=== PATIENT | male | born 1960 | race Caucasian/White ===

== ENCOUNTER 2017-06-30 06:29 | Emergency (ER) | payer OTHER ==
[2017-06-30 07:17] LABS: #Basophils 0.1 thou/uL (0.0-0.2); #Eosinphils 0.5 thou/uL (0.0-0.7); #Lymphocytes 1.3 thou/uL (1.20-3.40); #Monocytes 0.6 thou/uL (0.11-0.59); #Neutrophils 2.8 thou/uL (1.40-6.50); %Basophils 2.1 % (0.0-1.0); %Eosinophils 9.3 % (0.0-10.0); %Monocytes 11.8 % (0.0-10.0); %Neutrophils 52.9 % (42.0-75.0); Hemoglobin 15.8 g/dL (14.0-18.0); Mean Corpuscular HGB CONC 33.6 g/dL (32.0-36.0); Mean Corpuscular Volume 92.4 fl (80.0-94.0); Mean Platelet Volume 7.7 fL (7.4-10.4); Platelet Count 193 thou/uL (130-400); RBC Distribution Width 11.1 % (11.5-14.5); Red Blood Cell (RBC) Count 5.09 mill/uL (4.70-6.10); White Blood Cell (WBC) Count 5.2 thou/uL (4.8-10.8)
[2017-06-30] MEDS ORDERED: methylPREDNISolone Sod Succ/PF 125 MG/2 ML VIAL ONE (07:23)
[2017-06-30 07:31] LABS: ALT (SGPT) 85 U/L (8-55); AST (SGOT) 41 U/L (5-34); Albumin 4.4 g/dL (3.5-5.0); Alkaline Phosphatase 53 U/L (40-150); Anion Gap 14 mmol/L (10-20); BUN (Urea Nitrogen) 9 mg/dL (8.4-25.7); Bilirubin, Total 0.8 mg/dL (0.2-1.2); CK (CPK) 270 U/L (30-200); Calc. Creatinine Clearance 0 mL/min (70-130); Calcium 9.2 mg/dL (7.8-10.44); Carbon Dioxide 27 mmol/L (22-29); Chloride 102 mmol/L (98-107); Estimated GFR-MDRD 76; Globulin 2.3 g/dL (2.4-3.5); Glucose 166 mg/dL (70-105); Lipase 14 U/L (8-78); Potassium 4.4 mmol/L (3.5-5.1); Protein, Total 6.7 g/dL (6.0-8.3); Sodium 139 mmol/L (136-145)
[2017-06-30 07:32] LABS: CKMB 6.4 ng/mL (0-6.6); Troponin I Less than 0.010 ng/mL (< 0.028)
--- NOTE | 2017-06-30 07:32 | RAD ---
SEMIUPRIGHT PORTABLE CHEST 1 VIEW: Date: 06/30/17 HISTORY: 56-year-old male with dyspnea and wheezing. COMPARISON: 02/08/17. 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 Left hemidiaphragm elevation. No conf luent pneumonia, overt edema, or pleural effusion. IMPRESSION: No acute intrathoracic disease. Left hemidiaphragm elevation. POS: [facility]
[2017-06-30] MEDS ORDERED: Magnesium Sulfate 2 GM/NS 0.9% 50 ML BAG ONE (07:35)
[2017-06-30] MEDS ORDERED: Albuterol Sulfate 2.5 mg/0.5 ml Neb ONE (08:31)
== END 2017-06-30 09:37 | disposition home or self-care (01) ==
LOC: SCSER 06:29
DX: J44.9 Chronic obstructive pulmonary disease, unspecified (principal); R09.02 Hypoxemia; E78.5 Hyperlipidemia, unspecified; F17.220 Nicotine dependence, chewing tobacco, uncomplicated
CPT/HCPCS: 71045; 80053; 82553; 83690; 83880; 84484; 85025; 93005; 96365; 96375; J2930; J3475; J7611; J7620

== ENCOUNTER 2017-07-05 09:42 | Outpatient (CLI) | payer OTHER ==
--- NOTE | 2017-07-05 10:44 | RAD ---
CHEST 2 VIEWS: HISTORY: Dyspnea. COMPARISON: 07/09/14. FINDINGS: Cardiac silhouette and pulmonary vasculature are unremarkable. Mediastinum is midline. Lobulation a nd slight elevation of the left hemidiaphragm is stable. Parenchymal scarring at the lung bases is u nchanged in appearance. IMPRESSION: Stable radiographic appearance of the chest. POS: [facility]
== END 2017-07-05 09:43 | disposition home or self-care (01) ==
LOC: RAD 09:42
PROVIDERS: ATTEND Internal Medicine
DX: R06.00 Dyspnea, unspecified (principal)
CPT/HCPCS: 71046

== ENCOUNTER 2017-07-22 19:00 | Outpatient (CLI) | payer OTHER | END 2017-07-22 19:01 | disposition home or self-care (01) | LOC: SLEEPLAB 19:00 | PROVIDERS: ATTEND Internal Medicine | DX: G47.33 Obstructive sleep apnea (adult) (pediatric) (principal); E66.9 Obesity, unspecified; E11.9 Type 2 diabetes mellitus without complications; R35.1 Nocturia; J44.9 Chronic obstructive pulmonary disease, unspecified; K21.9 Gastro-esophageal reflux disease without esophagitis | CPT/HCPCS: 95806 ==

== ENCOUNTER 2017-10-14 08:09 | Outpatient (CLI) | payer OTHER ==
--- NOTE | 2017-10-14 09:36 | RAD ---
CHEST 2 VIEWS: Date: 10/14/17 HISTORY: Dyspnea. COMPARISON: 07/05/17. FINDINGS: Cardiac silhouette and pulmonary vasculature are unremarkable. Linear atelectasis of the lingula has developed. Lungs are otherwise hyperinflated. No evidence of pneumothorax. IMPRESSION: COPD> Interval development lingular atelectasis. POS: [facility]
== END 2017-10-14 08:10 | disposition home or self-care (01) ==
LOC: RAD 08:09
PROVIDERS: ATTEND Internal Medicine Pulmonary Disease
DX: R06.00 Dyspnea, unspecified (principal); J44.9 Chronic obstructive pulmonary disease, unspecified; J98.11 Atelectasis
CPT/HCPCS: 71046

== ENCOUNTER 2017-11-03 11:31 | Outpatient (CLI) | payer OTHER ==
[2017-11-03] MEDS ORDERED: Iopamidol 370 76% 100 ML VIAL ONE (13:20)
--- NOTE | 2017-11-03 13:57 | CT ---
CONTRAST ENHANCED CT CHEST: HISTORY: Cough. COPD. Chronic cough for several years. History of atelectasis. TECHNIQUE: Contrast enhanced CT images of the chest are performed. The patient received 95 mL of Isovue-370. FINDINGS: Images demonstrate some areas of scarring seen in the left lower lobe. Some areas of atelectasis or scar are also present in the right middle lobe. The mediastinum is unremarkable. No significant evidence of lymphadenopathy is seen. No evidence of coronary artery calcification is seen. No evidence of pulmonary edema or air space opacity is seen. Hypodense areas seen in the left hepatic lobe, compatible with likely cysts. IMPRESSION: Areas of scar in the left lower lobe and right middle lobe. POS: [facility]
[2017-11-03 15:52] LABS: pH, Arterial 7.38 (7.35-7.45)
[2017-11-03 15:53] LABS: Actual Bicarbonate (HCO3a) 22.8 mEq/L (22-26); Base Excess (BEa) 1.9 mEq/L (0 (+/-) 2.5); CO2 Tension 39.1 mmHg (35.0-45.0); Hematocrit-ABG 47.8 % (42.0-52.0); O2 Tension (PaO2) 62.1 mmHg (80.0-100.0)
[2017-11-03 15:55] LABS: ALV-art Gradient 38.755 (0-20); Puncture Site RR
== END 2017-11-03 11:32 | disposition home or self-care (01) ==
LOC: CT 11:31
PROVIDERS: ATTEND Internal Medicine
DX: J98.11 Atelectasis (principal); J44.1 Chronic obstructive pulmonary disease with (acute) exacerbation; K21.9 Gastro-esophageal reflux disease without esophagitis; J98.4 Other disorders of lung
CPT/HCPCS: 71260; 82565; 82805; 94060; 94727; 94729

== ENCOUNTER 2018-07-06 12:06 | Inpatient (IN) | payer OTHER ==
[2018-07-06 12:45] VITALS: BMI 29.5
[2018-07-06] MEDS ORDERED: EPINEPHrine 1 MG/ML AMP IM PRN (12:56)
[2018-07-06] MEDS ORDERED: EPINEPHrine 1 MG/10 ML Abboject SYRINGE ONE (12:57)
[2018-07-06] MEDS ORDERED: diphenhydrAMINE 50 MG/ML VIAL ONE (12:57)
[2018-07-06] MEDS ORDERED: Sodium Chloride 0.45% 1,000 ML IV SCH (13:00)
[2018-07-06] MEDS ORDERED: methylPREDNISolone Sod Succ/PF 125 MG/2 ML VIAL IVP SCH (13:00)
[2018-07-06] MEDS ORDERED: Sterile Water 0 ML ONE (13:00)
[2018-07-06] MEDS ORDERED: Ondansetron PF 4 MG/2 ML Vial IVP PRN (13:05)
[2018-07-06 13:16] LABS: #Lymphocytes 0.8 thou/uL (1.20-3.40); #Monocytes 0.4 thou/uL (0.11-0.59); #Neutrophils 7.1 thou/uL (1.40-6.50); %Basophils 0.4 % (0.0-1.0); %Eosinophils 0.2 % (0.0-10.0); %Monocytes 4.7 % (0.0-10.0); %Neutrophils 84.6 % (42.0-75.0); Hemoglobin 15.7 g/dL (14.0-18.0); Mean Corpuscular HGB CONC 33.3 g/dL (32.0-36.0); Mean Corpuscular Hemoglobin 31.5 pg (27.0-31.0); Mean Corpuscular Volume 94.6 fL (78.0-98.0); Mean Platelet Volume 7.3 fL (7.4-10.4); Platelet Count 217 thou/uL (130-400); RBC Distribution Width 11.5 % (11.5-14.5); White Blood Cell (WBC) Count 8.4 thou/uL (4.8-10.8)
[2018-07-06] MEDS: Mometasone/Formoterol 120 PUFF INHALER INH SCH (13:25)
[2018-07-06] MEDS ORDERED: Bacteriostatic Water 30 ML VIAL FS PRN (13:31)
[2018-07-06 13:43] LABS: ALT (SGPT) 68 U/L (8-55); AST (SGOT) 32 U/L (5-34); Albumin 4.4 g/dL (3.5-5.0); Alkaline Phosphatase 64 U/L (40-150); Anion Gap 18 mmol/L (10-20); BUN (Urea Nitrogen) 12 mg/dL (8.4-25.7); Bilirubin, Total 0.5 mg/dL (0.2-1.2); Calc. Creatinine Clearance 96 mL/min (70-130); Calcium 9.6 mg/dL (7.8-10.44); Carbon Dioxide 21 mmol/L (22-29); Chloride 104 mmol/L (98-107); Estimated GFR-MDRD 73; Globulin 2.7 g/dL (2.4-3.5); Glucose 274 mg/dL (70-105); Magnesium 2.3 mg/dL (1.6-2.6); Phosphorus 3.3 mg/dL (2.3-4.7); Potassium 4.8 mmol/L (3.5-5.1); Protein, Total 7.1 g/dL (6.0-8.3); Sodium 138 mmol/L (136-145)
[2018-07-06] MEDS ORDERED: Aspirin 81 mg Enteric Coated Tablet PO SCH (14:00)
--- NOTE | 2018-07-06 14:23 | HP ---
SERVICE: Pulmonary Medicine. REASON FOR VISIT: The patient is a 57-year-old white male with past medical history significant for asthma, polyps, and aspirin allergy. He is essentially steroid dependent from time to time associated with severe respiratory illnesses. He has frequent asthma exacerbations, and the only thing that prevents ceasing from coming on is low [id number] doses of steroids. He has been on and off these things for the better part of the last three years. He has been on Breo, Singulair, and even got started on Mepolizumab. None of these medications seemed to have a significant impact on his requirement for steroids. He has severe upper respiratory tract infection, history of polyposis, status post polypectomies. He recently got evaluated by ENT. No polyps were identified. As such, we are going to move forward with aspirin desensitization. He previously failed an outpatient aspirin desensitization for some unknown reason. That being said, it was abandoned, and he never went forward with that again. He is currently in his usual state of health. He has dyspnea that limits his activity on a daily basis. He denies any current fevers, chills, nausea, or vomiting. He currently does not relate any significant dyspnea that is worse than typical. He is not having any fevers, chills, cough, sputum production, has not been exposed to any sick contacts recently. PAST MEDICAL HISTORY: 1. Asthma. 2. Chronic obstructive pulmonary disease. 3. Samter Triad. 4. Type 2 diabetes mellitus. 5. Dyslipidemia. 6. Gastroesophageal reflux disease, mild. 7. History of left nephrolithiasis. 8. History of pancreatitis, recurrent. 9. Low testosterone. 10. History of tobacco abuse, resolved. PAST SURGICAL HISTORY: 1. Cholecystectomy. 2. Sinus surgery. SOCIAL HISTORY: He drinks a couple of beers on a daily basis. He has a 30-pack year history of smoking, but has discontinued this habit altogether. His continues to smoke actively. He denies any street drugs. He has no exposure to chemicals, dust, asbestos, or tuberculosis. FAMILY HISTORY: Positive for diabetes and asthma. ALLERGIES: NONSTEROIDAL ANTI-INFLAMMATORY DRUGS AND ASPIRIN BOTH DIFFICULTY WITH BREATHING. MEDICATIONS: 1. Protonix 40 mg p.o. daily. 2. Metformin 500 mg p.o. b.i.d. 3. Montelukast 10 mg p.o. daily. 4. Simvastatin 80 mg p.o. at bedtime. 5. Azelastine 137 mcg one spray each nostril daily. 6. Flonase 50 mcg one spray each nostril daily. 7. Breo 200/25 one inhalation daily. 8. DuoNeb/Combivent nebulized/inhaled q.6 hours as needed. 9. Mepolizumab 100 mg subcu q.4 weeks. REVIEW OF SYSTEMS: General, head ears, eyes, nose, throat, cardiovascular, respiratory, GI, , musculoskeletal, neurologic, and skin are negative except as mentioned in the HPI. PHYSICAL EXAMINATION: VITAL SIGNS: Afebrile, pulse 100, respirations 14, saturation 93% on room air. GENERAL: The patient is awake and alert, in no apparent distress. LUNGS: Decent air entry. There is a slightly prolonged expiratory phase. Polyphonic wheezing is noted. There are no crackles appreciated. HEART: Normal rate and regular. ABDOMEN: Soft, nontender, and nondistended. Bowel sounds are positive. MUSCULOSKELETAL: No cyanosis or clubbing. No pitting in the bilateral lower extremities. NEUROLOGIC: Grossly nonfocal. ASSESSMENT: 1. 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 2. Obstructive sleep apnea, moderate, not able to tolerate CPAP therapy. 3. Chronically elevated left hemidiaphragm. 4. Gastroesophageal reflux disease, [id number]. 5. Rhinitis secondary to allergic and nonallergic causes. DISCUSSION AND PLAN: Since the patient has failed Breo, Singulair, Mepolizumab , and still has refractory asthma symptoms requiring frequent doses of steroids, we will move forward with aspirin desensitization. I will put him in the ICU today. We will give a loading doses of aspirin while we keep him under very close observation. Epinephrine, steroids, and Benadryl will all be available at bedside. The Protonix, metformin, montelukast, simvastatin, azelastine, Flonase, Dulera, and p.r.n. DuoNeb will be continued. We will also provide him p.r.n. Zofran if he develops any GI discomfort associated with this. The Mepolizumab will be placed on hold for the time being. 70 minutes have been devoted to this patient in various activities. I personally reviewed all imaging studies and laboratory data noted within this document. For fifty percent of this time, I was interacting with the patient at the bedside or coordinating care with the care team. For the remainder of the time I was immediately available to the patient in the hospital unit. Job ID: [id number] [email or web address]
[2018-07-06] MEDS: metFORMIN 500 MG TAB PO SCH (17:27)
[2018-07-06] MEDS ORDERED: Aspirin 325 MG TAB PO SCH (20:00)
[2018-07-06] MEDS: diphenhydrAMINE 50 MG/ML VIAL IVP SCH (20:11)
[2018-07-06] MEDS ORDERED: Atorvastatin Calcium 40 MG TAB PO SCH (21:00)
[2018-07-06] MEDS ORDERED: Montelukast Sodium 10 mg Tablet PO SCH (21:00)
[2018-07-06] MEDS: diphenhydrAMINE 50 MG CAP PO PRN (23:09)
[2018-07-06] MEDS: Albuterol Sulfate 2.5 mg/3 ml Neb NEB PRN (23:23)
[2018-07-07] MEDS: Mometasone/Formoterol 120 PUFF INHALER INH SCH (07:15)
[2018-07-07] MEDS: Albuterol Sulfate 2.5 mg/3 ml Neb NEB PRN (08:16)
[2018-07-07] MEDS ORDERED: Fluticasone Propionate Nasal Spray 16 gm Bottle NASAL SCH (09:00)
[2018-07-07] MEDS ORDERED: Azelastine 137 MCG/Spray 30 ML NS SCH (09:00)
--- NOTE | 2018-07-07 09:21 | PRG ---
DATE OF SERVICE: 07/07/2018 SERVICE: Pulmonary Medicine. INTERVAL HISTORY: The patient is doing okay from respiratory standpoint. Overnight, he got an 81 dose of aspirin. This was his provocative dose. He started having increasing shortness of breath, some wheezing, and a rash with itching. He does not have anything that looks like anaphylaxis. He is not having any angioedema and denies any significant vomiting or diarrhea. He is having a little bit of nausea. Otherwise, there has been no interval change to his condition. PHYSICAL EXAMINATION: VITAL SIGNS: Afebrile. Pulse 90, blood pressure 124/74, respirations 14, saturation 99% on room air. GENERAL: The patient is awake and alert, in no apparent distress. LUNGS: There is decent air entry. There is a more prolonged expiratory phase and polyphonic wheezes, which is now evident. HEART: Normal rate, regular. ABDOMEN: Soft, nontender, and nondistended. Bowel sounds are positive. MUSCULOSKELETAL: No cyanosis or clubbing. There is no pitting in the bilateral lower extremities. He has a diffuse macular rash. This is more predominantly displayed in the lower extremity, and trunk. He has no mucosal lesions. : No Harvey. LABORATORY DATA: WBC 8.4, hemoglobin 15.7, platelets 217,000. Creatinine 1.05. Basic metabolic profile and liver function studies are otherwise unremarkable. ASSESSMENT: 1. Samter's Triad, including asthma that is refractory to conventional therapy, nasal polyposis, and aspirin allergy. 2. Obstructive sleep apnea, moderate, not able to tolerate CPAP therapy. 3. Chronically elevated left hemidiaphragm. 4. Gastroesophageal reflux disease, mild. 5. Rhinitis secondary to allergic and nonallergic causes. DISCUSSION AND PLAN: We will give him a dose of Benadryl, and albuterol. Provided that we can improve his breathing and air movement, we will repeat our provocative dose of 81 mg before progressing in doses. Pulmonary Critical Care will continue to follow along and he will remain in the ICU for the time being. If he has significant GI discomfort, Zofran will be provided. We will continue our clear liquid diet, but I will not push any significant subsistence at this time. Otherwise, supportive measures will be continued. Job ID: [id number]
[2018-07-07] MEDS: metFORMIN 500 MG TAB PO SCH (09:42)
[2018-07-07] MEDS: diphenhydrAMINE 50 MG/ML VIAL IVP SCH (09:43)
[2018-07-07] MEDS ORDERED: Aspirin 325 MG TAB PO SCH ×2 (10:00→13:00)
[2018-07-07 11:59] VITALS: TEMP 98.3
[2018-07-07] MEDS: diphenhydrAMINE 50 MG CAP PO PRN (12:58)
--- NOTE | 2018-07-08 04:26 | DIS ---
DATE OF ADMISSION: 07/06/2018 DATE OF DISCHARGE: 07/07/2018 SERVICE: Pulmonary Critical Care. CONSULTS: None. PROCEDURE: Aspirin desensitization. HOSPITAL COURSE: The patient was admitted to the hospital in his usual state of health for aspirin desensitization. He has asthma, that was refractory to Breo, Singulair, Spiriva and mepolizumab. He required frequent courses of steroids. Ultimately, we decided to attempt aspirin desensitization. He previously failed an outpatient procedure from for an unknown reason. Either way, he was admitted to the hospital in his usual state of health. We went through an aspirin desensitization protocol. His provocation dose was 81 mg of aspirin. He received that dose three times before he was able to proceed with the desensitization protocol. On the day of discharge, he tolerated 325 mg of aspirin without albuterol, or Benadryl. He was breathing comfortably, was tolerating p.o., and did not have any significant upper respiratory tract issues. As such, he was discharged from the hospital. He will continue his home medications and initiate aspirin 325 mg p.o. twice daily in the outpatient setting. DISCHARGE CONDITION: Stable. DISPOSITION: Home. MEDICATIONS: Home medications will be resumed. He will add aspirin 325 mg p.o. twice daily to his regimen. INSTRUCTIONS: The patient will notify me for any additional wheezing, abdominal discomfort, mouth swelling. If he has shortness of breath that is refractory to home therapies, he is to present immediately to the Emergency Department. FOLLOWUP: The patient will return to clinic to see me in 2 weeks as previously directed. Job ID: [id number]
== END 2018-07-07 17:30 | disposition home or self-care (01) | DRG 918 ==
LOC: CCU 12:06
PROVIDERS: ADMIT Internal Medicine; ATTEND Internal Medicine
DX: T39.011A Poisoning by aspirin, accidental (unintentional), initial encounter (principal); J45.998 Other asthma; J70.8 Respiratory conditions due to other specified external agents; Z88.6 Allergy status to analgesic agent; Z79.51 Long term (current) use of inhaled steroids; E11.9 Type 2 diabetes mellitus without complications; K21.9 Gastro-esophageal reflux disease without esophagitis; E78.5 Hyperlipidemia, unspecified; Z87.891 Personal history of nicotine dependence; G47.33 Obstructive sleep apnea (adult) (pediatric); J31.0 Chronic rhinitis; J33.9 Nasal polyp, unspecified; J68.3 Other acute and subacute respiratory conditions due to chemicals, gases, fumes and vapors
CPT/HCPCS: 36415; 36416; 80053; 83735; 84100; 85025; 94640; A4216; J0171; J1200; J2930; J7611

== ENCOUNTER 2021-11-24 14:55 | Outpatient (CLI) | payer BC ==
[2021-11-24 17:36] LABS: Anion Gap 14 mmol/L (10-20); BUN (Urea Nitrogen) 11 mg/dL (8.4-25.7); Calc. Creatinine Clearance 0 mL/min (70-130); Calcium 9.1 mg/dL (7.8-10.44); Carbon Dioxide 26 mmol/L (23-31); Chloride 105 mmol/L (98-107); Glucose 92 mg/dL (80-115); Potassium 4.4 mmol/L (3.5-5.1)
[2021-11-24 18:08] LABS: Sodium 141 mmol/L (136-145)
== END 2021-11-24 14:56 | disposition home or self-care (01) ==
LOC: LABBT 14:55
PROVIDERS: ATTEND Urology
DX: Z01.812 Encounter for preprocedural laboratory examination (principal); N20.1 Calculus of ureter; Z20.822 Contact with and (suspected) exposure to COVID-19
CPT/HCPCS: 80048; U0003; U0005

== ENCOUNTER 2021-11-26 09:17 | Day surgery (SDC) | payer BC ==
[2021-11-25 12:37] VITALS: BMI 30.4
[~2021-11-26 09:17] MED LIST: Fentanyl 100 MCG/2 ML VIAL ONE
[2021-11-26] MEDS ORDERED: Iopamidol 45 ML ONE (14:20)
[2021-11-26] MEDS ORDERED: Levofloxacin 500 mg/D5W 100 ml Premix Bag ONE (14:33)
[2021-11-26] MEDS ORDERED: Dexamethasone 20 MG/5 ML VIAL ONE (14:40)
[2021-11-26] MEDS ORDERED: Lidocaine 1% PF 5 ML VIAL ONE (14:40)
[2021-11-26] MEDS ORDERED: PROPOFOL 200 MG/20 ML VIAL ONE (14:40)
[2021-11-26] MEDS ORDERED: Ondansetron PF 4 MG/2 ML Vial ONE (14:40)
[2021-11-26] MEDS ORDERED: Oxybutynin 5 MG TAB ONE (16:00)
[2021-11-26] MEDS ORDERED: Ketorolac Tromethamine 30 MG/ML VIAL ONE (16:00)
[2021-11-26] MEDS ORDERED: Phenazopyridine HCl 100 MG TAB ONE (16:00)
[2021-11-26] MEDS ORDERED: Morphine 2 MG/ML VIAL ONE (16:50)
== END 2021-11-26 17:31 | disposition home or self-care (01) ==
LOC: SDC 09:17
PROVIDERS: ATTEND Urology
PROC: 0TC68ZZ Extirpation of Matter from Right Ureter, Via Natural or Artificial Opening Endoscopic (ICD-10-PCS; principal; 2021-11-26)
PROC: 0T768DZ Dilation of Right Ureter with Intraluminal Device, Via Natural or Artificial Opening Endoscopic (ICD-10-PCS; principal; 2021-11-26)
DX: N20.1 Calculus of ureter (principal); J45.909 Unspecified asthma, uncomplicated; Z79.899 Other long term (current) drug therapy
CPT/HCPCS: 74420; C2617; J1100; J1885; J1956; J2270; J2405; J2704; J3010; J7620; Q9967

== ENCOUNTER 2022-08-13 14:46 | Outpatient (CLI) | payer BC | END 2022-08-13 14:47 | disposition home or self-care (01) | LOC: BICMAMMO 14:46 | PROVIDERS: ATTEND Family Medicine | DX: M81.0 Age-related osteoporosis without current pathological fracture (principal); M85.852 Other specified disorders of bone density and structure, left thigh | CPT/HCPCS: 77080 ==

== ENCOUNTER 2024-08-03 13:43 | Outpatient (CLI) | payer MEDICARE, BC | END 2024-08-03 13:44 | disposition home or self-care (01) | LOC: RAD 13:43 | PROVIDERS: ATTEND Internal Medicine Critical Care Medicine | DX: R06.00 Dyspnea, unspecified (principal) | CPT/HCPCS: 71046 ==

== ENCOUNTER 2025-03-09 10:10 | Outpatient (CLI) | payer MEDICARE ==
[2025-03-09 11:24] LABS: #Basophils 0.03 10x3/uL (0.0-0.2); #Eosinophils 0.29 10x3/uL (0.0-0.7); #Monocytes 0.56 10x3/uL (0.11-0.59); #Neutrophils 3.97 10x3/uL (1.40-6.50); %Basophils 0.5 % (0.0-1.0); %Eosinophils 4.8 % (0.0-10.0); %Lymphocytes 18.6 % (21.0-51.0); %Monocytes 9.4 % (0.0-10.0); %Neutrophils 66.4 % (42.0-75.0); Hematocrit 47.5 % (42.0-52.0); Hemoglobin 15.4 g/dL (14.0-18.0); Mean Corpuscular Hemoglobin 31.4 pg (27.0-31.0); Mean Corpuscular Volume 96.7 fL (78.0-98.0); Platelet Count 189 10x3/uL (130-400); Red Blood Cell (RBC) Count 4.91 mill/uL (4.70-6.10); White Blood Cell (WBC) Count 5.98 10x3/uL (4.8-10.8)
[2025-03-09 11:47] LABS: Anion Gap 13 mmol/L (10-20); BUN (Urea Nitrogen) 14 mg/dL (8.4-25.7); Calc. Creatinine Clearance 0 mL/min (70-130); Calcium 9.2 mg/dL (7.8-10.44); Carbon Dioxide 26 mmol/L (23-31); Chloride 102 mmol/L (98-107); Glucose 138 mg/dL (80-115); Potassium 4.0 mmol/L (3.5-5.1); Sodium 137 mmol/L (136-145)
== END 2025-03-09 10:11 | disposition home or self-care (01) ==
LOC: LABBT 10:10
PROVIDERS: ATTEND Orthopaedic Surgery Hand Surgery
DX: Z01.818 Encounter for other preprocedural examination (principal); M65.331 Trigger finger, right middle finger
CPT/HCPCS: 80048; 85025; 93005; 93010

== ENCOUNTER 2025-03-13 05:54 | Day surgery (SDC) | payer MEDICARE ==
[2025-03-09 10:26] VITALS: BMI 28.7
[2025-03-13] MEDS ORDERED: CEFAZOLIN 2 GM VIAL ONE (06:05)
[2025-03-13] MEDS ORDERED: Bacitracin Zinc Ointment 30 gm TUBE ONE (06:16)
[2025-03-13] MEDS ORDERED: fentaNYL PF 100 MCG/2 ML SYRINGE ONE (06:50)
[2025-03-13] MEDS ORDERED: PROPOFOL 20 ML ONE (06:51)
[2025-03-13] MEDS ORDERED: Lidocaine 1% PF 5 ML VIAL ONE (06:51)
[2025-03-13] MEDS ORDERED: Ondansetron PF 4 MG/2 ML Vial ONE (06:51)
[2025-03-13] MEDS ORDERED: PHENYLEPHRINE-NS 100 MCG/ML 10 ML SYRINGE ONE (07:14)
[2025-03-13] MEDS ORDERED: Ketorolac Tromethamine 30 MG (1 mL) VIAL ONE (07:59)
== END 2025-03-13 09:35 | disposition home or self-care (01) ==
LOC: SDC 05:54
PROVIDERS: ATTEND Orthopaedic Surgery Hand Surgery
PROC: 0LN70ZZ Release Right Hand Tendon, Open Approach (ICD-10-PCS; principal; 2025-03-13)
DX: M65.331 Trigger finger, right middle finger (principal); M65.332 Trigger finger, left middle finger; M65.352 Trigger finger, left little finger; M65.342 Trigger finger, left ring finger; M72.0 Palmar fascial fibromatosis [Dupuytren]; J45.909 Unspecified asthma, uncomplicated; F17.200 Nicotine dependence, unspecified, uncomplicated; Z90.49 Acquired absence of other specified parts of digestive tract; Z91.048 Other nonmedicinal substance allergy status; Z79.51 Long term (current) use of inhaled steroids
CPT/HCPCS: 26055; A6223; J0665; J1100; J1885; J2704